=== PATIENT | female | born 1990 | race Caucasian/White ===

== ENCOUNTER 2018-06-01 11:15 | Emergency (ER) | payer OTHER ==
[~2018-06-01] VITALS: Ht 152.4 cm; Wt 60.3 kg
== END 2018-06-01 14:19 | disposition home or self-care (01) ==
LOC: ER 11:15
DX: N39.0 Urinary tract infection, site not specified (principal)

== ENCOUNTER 2020-06-03 15:30 | Inpatient (IN) | payer OTHER ==
[~2020-06-03] VITALS: Ht 149.9 cm; Wt 82.6 kg
[2020-06-09] MEDS ORDERED: PRENATAL TABLE1 EACH PO (21:14)
== END 2020-06-11 12:45 | disposition home or self-care (01) | DRG 807 ==
LOC: OB/GYN 06-09 20:26 → LDR 06-09 20:26 → OB/GYN 06-09 23:36 → LDR 06-20 15:30 → OB/GYN 06-20 15:30
PROVIDERS: ADMIT Specialist; ATTEND Specialist
PROC: 10E0XZZ Delivery of Products of Conception, External Approach (ICD-10-PCS; principal; 2020-06-09)
PROC: 0UQMXZZ Repair Vulva, External Approach (ICD-10-PCS; 2020-06-09)
PROC: 4A1HXCZ Monitoring of Products of Conception, Cardiac Rate, External Approach (ICD-10-PCS; 2020-06-09)
DX: O71.82 Other specified trauma to perineum and vulva (principal); Z37.0 Single live birth; Z20.828 Contact with and (suspected) exposure to other viral communicable diseases; Z3A.38 38 weeks gestation of pregnancy